=== PATIENT | male | born 1960 | race American Indian/Alaskan Native ===

== ENCOUNTER 2021-01-06 00:32 | Emergency (ER) | payer SELFPAY ==
[2021-01-06 01:01] VITALS: BP 139/87
[2021-01-06] MEDS ORDERED: IBUPROFEN 600 MG TAB PO ONE (01:21)
[2021-01-06] MEDS ORDERED: ACETAMINOPHEN 500 MG TAB PO ONE (01:21)
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
== END 2021-01-06 03:09 | disposition home or self-care (01) ==
LOC: ED 00:32
DX: S43.492A Other sprain of left shoulder joint, initial encounter (principal); S80.11XA Contusion of right lower leg, initial encounter; M62.838 Other muscle spasm; M54.2 Cervicalgia; I10 Essential (primary) hypertension; V89.2XXA Person injured in unspecified motor-vehicle accident, traffic, initial encounter; Y93.89 Activity, other specified; Y92.488 Other paved roadways as the place of occurrence of the external cause; Y99.8 Other external cause status
CPT/HCPCS: 70450; 72125; 99284